=== PATIENT | female | born 1950 | race Caucasian/White ===

== ENCOUNTER → 2020-10-29 10:17 | Outpatient (CLI) | payer OTHER, SELFPAY ==
--- NOTE | ~2020-10-29 | MM_ITS ---
EXAMINATION: MM screening [facility]ylon BI w tasneem HISTORY: Screening mammogram TECHNIQUE: Craniocaudal and mediolateral oblique 3-D tomosynthesis images were obtained and synthetic 2-D images were generated. CAD analysis was submitted and interpreted. COMPARISON: No prior mammogram is available for comparison at this institution. BREAST PARENCHYMAL COMPOSITION: The breasts are almost entirely fatty. FINDINGS: There is no evidence of suspicious mass, calcification, or architectural distortion to sugg est malignancy in either breast. An asymmetry in the middle third of the upper right breast on the me diolateral oblique view is without correlate on the craniocaudal view, likely overlapping fibroglandu lar tissue given the fatty nature of the breasts. IMPRESSION: 1. No mammographic evidence of malignancy. 2. Recommend routine screening mammography in one year. BI-RADS Category 2: Benign finding(s). Reviewed, dictated and finalized at location D.
== END ==
PROVIDERS: PCP Emergency Medicine; Visit Provider Emergency Medicine
DX: Z12.31 Encounter for screening mammogram for malignant neoplasm of breast (principal)
CPT/HCPCS: 77063; 77067

== ENCOUNTER → 2023-04-27 13:58 | Outpatient (CLI) | payer OTHER, SELFPAY ==
--- NOTE | ~2023-04-27 | MM_ITS ---
EXAMINATION: MM screening [facility] BI w tasneem HISTORY: Screening TECHNIQUE: Craniocaudal and mediolateral oblique 3-D tomosynthesis images were obtained and synthetic 2-D images were generated. CAD analysis was submitted and interpreted. COMPARISON: 10/29/2020 BREAST PARENCHYMAL COMPOSITION: There are scattered areas of fibroglandular density. FINDINGS: There is a mass in the upper inner quadrant of the left breast, middle third. The right frederic ast is stable without evidence for malignancy. IMPRESSION: 1. Left breast mass, upper inner quadrant. 2. Additional mammographic views and possible breast ultrasound are recommended. BI-RADS Category 0: Incomplete: Needs additional imaging evaluation. Reviewed, dictated and finalized at location A. F NURSE IMPRESSION: 1. Left breast mass, upper inner quadrant. 2. Additional mammographic views and possible breast ultrasound are recommended . BI-RADS Category 0: Incomplete: Needs additional imaging evaluation.
== END ==
PROVIDERS: PCP Emergency Medicine; Visit Provider Emergency Medicine
DX: Z12.31 Encounter for screening mammogram for malignant neoplasm of breast (principal); R92.8 Other abnormal and inconclusive findings on diagnostic imaging of breast
CPT/HCPCS: 77063; 77067

== ENCOUNTER 2023-05-25 07:42 | Outpatient (CLI) | payer OTHER, SELFPAY ==
--- NOTE | ~2023-05-25 | MMUS_ITS ---
EXAMINATION: MM diagnostic dylon LT w tasneem, US breast LT limited HISTORY: Follow-up left breast mass TECHNIQUE: Additional 3-D tomosynthesis images of the left breast were performed and synthetic 2-D im ages were generated. CAD analysis was submitted and interpreted. High resolution Limited left breast ultrasound was performed. COMPARISON: Comparison to multiple prior studies sequentially, with oldest reviewed study dated 10/29. BREAST PARENCHYMAL COMPOSITION: Not dense: There are scattered areas of fibroglandular density. FINDINGS: MAMMOGRAPHIC FINDINGS: There is an irregular shaped mass in the upper inner quadrant of the left breast posteriorly. There a re no suspicious calcifications or architectural distortion. ULTRASOUND: Limited left breast ultrasound: No masses identified corresponding to the mammographic finding. At 11 :00, 8 cm from the nipple there is a parallel oriented hypoechoic structure measuring 9 mm, likely be nign lipoma. No posterior features. There is marginal vascularity. IMPRESSION: 1. Irregular shaped mass upper inner quadrant of the left breast posteriorly without definite sonogra phic correlate. 2. Stereotactic left breast biopsy recommended. BI-RADS category 4, suspicious findings. Reviewed, dictated and finalized at location A. IMPRESSION: 1. Irregular shaped mass upper inner quadrant of the left breast posteriorly wi thout definite sonographic correlate. 2. Stereotactic left breast biopsy recommended. BI-RADS category 4, suspicious findings.
== END 2023-05-25 07:43 ==
LOC: MICIMG 07:43
PROVIDERS: PCP Emergency Medicine; Visit Provider Emergency Medicine
DX: N63.20 Unspecified lump in the left breast, unspecified quadrant (principal); R92.8 Other abnormal and inconclusive findings on diagnostic imaging of breast
CPT/HCPCS: 76642; 77061; 77065; G0279

== ENCOUNTER 2023-06-30 08:49 | Outpatient (CLI) | payer OTHER, SELFPAY ==
--- NOTE | ~2023-06-30 | MMUS_ITS ---
EXAMINATION: MM stereotactic bx LT, US breast LT limited HISTORY: Scheduled stereotactic biopsy for asymmetric density in the posterior upper inner left breas t near midline noted on 05/25/2023 screening mammogram examination TECHNIQUE: Stereotactic biopsy was initially attempted, with routine targeting of the small asymmetri c density in the posterior upper inner quadrant after sterile cleaning of the skin, infiltration of t he skin with 1% lidocaine and deeper soft tissues with 1% lidocaine and epinephrine, small skin incis ion. However, the stereotactic system did not register the density depth correctly, preventing needl e placement at the appropriate depth after successful initial targeting. An attempt was made to start over and re-target the small mammographic density of interest which had previously been outlined by fat and readily detectable, but the density unfortunately could no longer be definitively localized after the local anesthetic had been infiltrated in the area. The stereota ctic biopsy was terminated. Attempt was made to find the lesion by sonography by the technologist and subsequently by me the radi ologist, without success. I explained the issue to the patient that prevented continuing the stereotactic biopsy and indicated that the small mammographic density of interest was again not detected on ultrasound examination. Upon review of 10/29/2020 bilateral screening mammogram, this small mammographic density is likely pre sent retrospectively and is most likely benign. I recommended six-month follow-up diagnostic left mammogram to document stability. The patient indica cheli understanding and agreed. COMPARISON: 05/25/2023 diagnostic left mammogram and Limited left breast ultrasound 04/27/2023 bilateral screening mammogram 10/29/2020 bilateral screening mammogram IMPRESSION: 1. Probable chronic benign small mammographic asymmetry in the posterior upper inner left breast 2. Six-month diagnostic left mammogram is recommended to document stability. BI-RADS category 3, probably benign findings. Reviewed, dictated and finalized at location A. IMPRESSION: 1. Probable chronic benign small mammographic asymmetry in the posterior upper inner left breast 2. Six-month diagnostic left mammogram is recommended to document stability. BI-RADS category 3, probably benign findings.
== END 2023-06-30 08:50 | disposition home or self-care (01) ==
PROVIDERS: PCP Emergency Medicine; Visit Provider Surgery
DX: R92.8 Other abnormal and inconclusive findings on diagnostic imaging of breast (principal)
CPT/HCPCS: 19081; 76642; 77065

== ENCOUNTER 2023-12-21 16:47 | Emergency (ER) | payer OTHER, SELFPAY ==
--- NOTE | ~2023-12-21 | XR_ITS ---
EXAMINATION: XR sacrum coccyx min 2V DATE: 12/21/2023 17:41 INDICATION: Fall. TECHNIQUE: 3 views of the sacrum and coccyx were obtained. COMPARISON: None. FINDINGS: There is lumbar dextrocurvature and severe spondylosis. No fracture. There is mild osteoart hritis of the hips and sacroiliac joints. IMPRESSION: 1. No fracture. Reviewed, dictated and finalized at location A. IMPRESSION: 1. No fracture.
--- NOTE | ~2023-12-21 | XR_ITS ---
EXAMINATION: XR ankle RT min 3V DATE: 12/21/2023 17:41 INDICATION: Right ankle injury. Fall. TECHNIQUE: 4 views of right ankle were obtained. COMPARISON: None. FINDINGS: Alignment is normal. No fracture. There is mild ankle joint osteoarthritis. There are enthe sophytes at the posterior and plantar aspects of calcaneal tuberosity. Ankle soft tissue swelling is noted. IMPRESSION: 1. Mild ankle joint osteoarthritis. Reviewed, dictated and finalized at location A.
[2023-12-21 17:02] VITALS: BP 149/54; PULSE 72; RESP 16; TEMP 36.2; O2SAT 98
[2023-12-21 17:03] VITALS: BP 149/54; PULSE 72; RESP 16; TEMP 36.2; O2SAT 98
--- NOTE | 2023-12-21 17:19 | ED.LOWEXIN ---
HPI - Extremity Injury (Lower) General Chief Complaint: Extremity Injury, Lower Stated Complaint: ankle injury Time Seen by Provider: 12/21/23 17:10 Source: patient, family (Daughter) and RN notes reviewed Mode of arrival: ambulatory Limitations: no limitations History of Present Illness HPI Narrative: Patient presents today complaining of right ankle injury. She tripped and fell 3 days ago at home injuring her ankle. Denies numbness or tingling. She has been ambulatory with increased pain. No embz-olt-[id number] treatment prior to arrival. She also reports another trip and fall yesterday that she attributes to the pain in her ankle. She fell backwards onto her buttocks causing pain in her sacrum/coccyx area that she currently rates it 10/14. Denies numbness or tingling in the genitals or lower extremities. Denies loss of bowel or bladder control. Related Data Home Medications Medication Instructions Recorded Confirmed calcium 300 mg-vit D3 200 tablet PO .daily 05/03/19 07/26/23 appp-nzdigfzp-qsqljwvuq 13.5 mg tablet (Citracal Plus Bone Density Builder) wdoutowx-wel-piwan ac 400 tablet PO .daily 05/03/19 07/26/23 mcg-calcium carb 500 mg-vit K1 20 mcg tablet Allergies Allergy/AdvReac Type Severity Reaction Status Date / Time No Known Allergies Allergy Verified 12/21/23 17:02 Review of Systems Review of Systems: CONSTITUTIONAL: Denies body aches, fever, chills, or sweats. EYES: Denies visual changes, redness, or discharge. ENT: Denies rhinorrhea, congestion, sore throat, or otalgia. CARDIOVASCULAR: Denies chest pain, palpitations, or edema. RESPIRATORY: Denies cough or dyspnea. GASTROINTESTINAL: Denies abdominal pain, nausea, vomiting, or diarrhea. GENITOURINARY: Denies dysuria or hematuria. SKIN: Denies rash, itching, or wounds. MUSCULOSKELETAL: + sacral pain, right ankle injury NEUROLOGIC: Denies headache, numbness, tingling, or weakness. PSYCH: Denies depression or anxiety. [facility] Past Medical History Medical History At risk for bone density loss Bilateral carotid bruits Heart murmur, systolic HLD (hyperlipidemia) Hyperglycemia Lightheaded Menieres disease Rosacea Family History Family History Sibling Acute myocardial infarction Mother Cerebrovascular accident, Onset Age: 72 Social History Social History Smoking status: Former smoker Alcohol intake: current Substance use: never Substance use type: does not use Current Housing: Decline to Answer Concerned About Future Housing: Decline to Answer Difficulty Paying Gas/Electric Bills: Decline to Answer Difficulty Paying for Meds: Decline to Answer Currently Unemployed: Decline to Answer Education: Decline to Answer Difficulty w/ Childcare or Family Care: Decline to Answer Comments At time of signature, I have reviewed and agree with nursing past medical, surgical, social and family history unless otherwise noted. Please see nursing chart for further information. There is no relevant family history pertinent to the presenting complaint Exam Narrative: GENERAL: Well-appearing, well-nourished, and in no acute distress. HEAD: Normocephalic, atraumatic. EYES: EOMI. No redness or drainage. Conjunctivae normal. ENT: Mucous membranes pink and moist. NECK: Normal AROM. CHEST: No respiratory distress. MUSCULOSKELETAL: Mild tenderness of the lower sacrum/coccygeal area. No bruising or edema noted. EXTREMITIES: Right ankle: Mild to moderate edema of the lateral ankle with mild ecchymosis. Ankle seems to be nontender to palpation. Full AROM of the ankle without pain. Distal sensation intact. Capillary refill normal. Pedal pulse normal. SKIN: Warm, dry, no rash. Capillary refill normal. Normal skin turgor. NEURO: No
== END 2023-12-21 18:10 | disposition home or self-care (01) ==
PROVIDERS: Emergency Provider Nurse Practitioner; PCP Emergency Medicine
DX: S93.401A Sprain of unspecified ligament of right ankle, initial encounter (principal); W01.0XXA Fall on same level from slipping, tripping and stumbling without subsequent striking against object, initial encounter; M54.50 Low back pain, unspecified; E78.5 Hyperlipidemia, unspecified; R01.1 Cardiac murmur, unspecified; R09.89 Other specified symptoms and signs involving the circulatory and respiratory systems; Z87.891 Personal history of nicotine dependence
CPT/HCPCS: 72220; 73610; 99214; G0463

== ENCOUNTER 2024-04-02 10:42 | Outpatient (CLI) | payer OTHER, SELFPAY ==
--- NOTE | ~2024-04-02 | MMUS_ITS ---
EXAMINATION: MM diagnostic dylon BI w tasneem, US breast LT limited HISTORY: Follow-up left breast mass TECHNIQUE: Additional 3-D tomosynthesis images of the left breast were performed and synthetic 2-D im ages were generated. CAD analysis was submitted and interpreted. High resolution Limited left breast ultrasound was performed. COMPARISON: Comparison to multiple prior studies sequentially, with oldest reviewed study dated 10/29. BREAST PARENCHYMAL COMPOSITION: Not dense: There are scattered areas of fibroglandular density. FINDINGS: MAMMOGRAPHIC FINDINGS: There is a mass in the upper inner quadrant of the left breast, middle third. This mass is increased in size measuring 7.5 x 4.7 mm compared with 5 x 2.8 cm on 10/29/2020. The margins are indistinct. No evidence for malignancy in the right breast. ULTRASOUND: Limited left breast ultrasound: At 11:00, 8 cm from the nipple there is a hyperechoic parallel orient ed mass measuring 1 cm, consistent with a lipoma. No definite sonographic abnormality is identified t o correspond to the mammographic finding. IMPRESSION: 1. Increased size and density of left breast mass in the upper inner quadrant with indistinct margins . No sonographic correlate. 2. Stereotactic left breast biopsy recommended. BI-RADS category 4, suspicious findings. Reviewed, dictated and finalized at location A. L SPECIALIST IMPRESSION: 1. Increased size and density of left breast mass in the upper inner quadrant w ith indistinct margins. No sonographic correlate. 2. Stereotactic left breast biopsy recommended. BI-RADS category 4, suspicious findings.
== END 2024-04-02 10:43 | disposition home or self-care (01) ==
LOC: ANHIMG 10:43
PROVIDERS: PCP Emergency Medicine; Visit Provider Surgery
DX: R92.8 Other abnormal and inconclusive findings on diagnostic imaging of breast (principal); N63.22 Unspecified lump in the left breast, upper inner quadrant
CPT/HCPCS: 76642; 77062; 77066; G0279

== ENCOUNTER 2024-10-01 12:38 | Outpatient (CLI) | payer OTHER, SELFPAY ==
--- NOTE | ~2024-10-01 | MMUS_ITS ---
EXAMINATION: MM diagnostic dylon LT w tasneem, US breast LT limited HISTORY: Follow-up left breast mass. TECHNIQUE: Additional 3-D tomosynthesis images of the left breast were performed and synthetic 2-D im ages were generated. CAD analysis was submitted and interpreted. High resolution Limited left breast ultrasound was performed. COMPARISON: Comparison to multiple prior studies sequentially, with oldest reviewed study dated 10/29. BREAST PARENCHYMAL COMPOSITION: Not dense: There are scattered areas of fibroglandular density. FINDINGS: MAMMOGRAPHIC FINDINGS: There is a mass upper inner quadrant of the left breast which is stable compared with prior examinati on, middle third. ULTRASOUND: Limited left breast ultrasound: At 11:00, 8 cm from the nipple there is an oval hyperechoic mass jose g uring 8 x 6 x 5 mm which is unchanged from prior examination line for technique. IMPRESSION: 1. Stable mass in the left breast. 2. Recommend 6 month follow-up diagnostic bilateral mammogram and Limited left breast ultrasound nia mmended. BI-RADS category 3, probably benign findings. Reviewed, dictated and finalized at location B. IMPRESSION: 1. Stable mass in the left breast. 2. Recommend 6 month follow-up diagnostic bilateral mammogram and Limited left breast ultrasound recommended. BI-RADS category 3, probably benign findings.
== END 2024-10-01 12:39 | disposition home or self-care (01) ==
LOC: ANHIMG 12:40
PROVIDERS: PCP Emergency Medicine; Visit Provider Surgery
DX: R92.8 Other abnormal and inconclusive findings on diagnostic imaging of breast (principal); N63.20 Unspecified lump in the left breast, unspecified quadrant
CPT/HCPCS: 76642; 77061; 77065; G0279